=== PATIENT | female | born 1950 | race Caucasian/White ===

== ENCOUNTER 2017-02-08 07:22 | Day surgery (SDC) | payer MEDICARE ==
--- NOTE | 2017-01-30 08:32 | HP ---
CC: Dr. Guz[facility], [facility]; [facility] PREOPERATIVE HISTORY AND PHYSICAL: DATE OF ADMISSION: This patient is scheduled for same day surgery admission by Dr. Guzman on Saturday , 02/08/17. DATE OF PREOPERATIVE HISTORY AND PHYSICAL EXAMINATION: 01/29/17. ATTENDING SURGEON: Dr. Marcia Guzman (dictated by Breanne Cat NP). CHIEF COMPLAINT: Right breast cancer. HISTORY OF PRESENT ILLNESS: The patient is a 66-year-old female referred to Dr. Guzman from [facility] for evaluation of a new right breast lump. The patient stated that she found a lump tara roximately 2 weeks ago and it is not associated with pain. Mammogram was performed, 01/18/17; fine needle aspiration done at [facility] by Dr. Luo revealed well-differentiated ducta l carcinoma in the mass, lateral aspect of the right breast and atypical cells suspicious for ductal adenocarcinoma in the mass, medial aspect of the right breast. The patient has a family history of breast cancer in 2 maternal aunts who had it diagnosed in their 80s; she also has a family history of ovarian cancer. She has never had radiation to the chest and has not had previous breast biopsies . Menarche was at age 15, first delivery at age 31 and menopause at age 55. She is not currently on any hormone therapy, but did take control pills in the past. Dr. Guzman examined the patient and discussed the findings with her and has recommended right breast lumpectomy with sentinel lymph node biopsy as a same day surgery procedure; Dr. Guzman discussed the nature of the surgical procedu re, the rationale for the procedure, the relevant risks and benefits, and today, I discussed the exp ected postoperative care and recovery. The patient has had a chance to ask questions and stated laurence t she understands the information and is satisfied with the answers given to her questions. She giselle l sign surgical consent on the day of surgery. She has also been referred for consultations with Dr Gio Tyler and Dr. Vidal Clark as well as with the Oncology nurse navigator. PAST MEDICAL HISTORY: Generally healthy. No acute or chronic conditions. PAST SURGICAL HISTORY: Tonsillectomy in 1959. OB HISTORY: 4, para 3, miscarriage 1. Menopause at age 55. MEDICATIONS: No active medications. ALLERGIES: No known drug allergies. FAMILY HISTORY: Positive for breast cancer in 2 maternal aunts and another family member with a his tory of ovarian cancer and colon cancer. No known anesthesia reactions, bleeding tendencies, or nba tting disorders. SOCIAL HISTORY: She is and is a banker. She has never been a smoker. She drinks 1 glass o f wine daily and walks for exercise. She denies the use of other substances. REVIEW OF SYSTEMS: Constitutional: No recent complaints. Cardiovascular: No chest pain, palpitat ions, pressure, or history of cardiac conditions. Respiratory: No shortness of breath. No history of smoking. Gastrointestinal: No conditions or complaints. Genitourinary: No conditions or compl aints. Musculoskeletal: No conditions or complaints. She denies any history of deep vein thrombos is or pulmonary embolism. She denies any bleeding tendencies and has never received a blood transfu tata. She denies any previous anesthesia complications. Neurologic: No complaints or conditions. PHYSICAL EXAMINATION GENERAL SURVEY: The patient is a 66-year-old female, well developed, well nourished, in no acute di stress. VITAL SIGNS: Height 65 inches, weight 145 pounds, body mass index 23.6, blood pressure 116/82, puls e 86 and regular, respiratory rate 16, temperature 97. HEENT: Benign. NECK: Supple. No cervical lymphadenopathy. No thyromegaly. BREASTS: Performed with the patient in supine position and sitting position. Breasts are symmetrica l. Skin is intact bilaterally. No masses noted in the left breast; in the upper outer quadrant of the right breast is an irregular, firm ill- defined mass that is distinct from surrounding tissues. Medial to the larger lesion is an area that is smaller, but also firm. No palpable supraclavicular lymphadenopathy. No palpable axillary lymphadenopathy. HEART: Regular rate and rhythm. No murmurs or rubs. ABDOMEN: Active bowel sounds. Soft, nontender, nondistended. No obvious masses, organomegaly, or evidence of umbilical hernia. EXTREMITIES: Warm without edema or skin ulceration. PELVIC AND RECTAL: Exams deferred. NEUROLOGIC: Alert and oriented x3. Steady gait. SKIN: Warm, dry, intact. IMPRESSION: Right breast cancer. PLAN: Same day surgery admission to Dr. Guzman's service on 02/08/17, for right breast lump ectomy and sentinel lymph node biopsy. PLACIDO CAT, EMPLOYEE BENEFITS ATTORNEY [id number]/[facility] #: [id number]
[~2017-02-08 07:22] MED LIST: Buffered Lidocaine 0.9% SYRIN* 5 ML/SYR SYRINGE INTRADERM ONE; Famotidine IV* 10 MG/ML 2 ML (20 mg) IV ONE; Famotidine IV* 10 MG/ML 2 ML (20 mg) ONE; Lidocaine 2.5%/Prilocain 2.5%* 5 GM TUBE ONE; ceFAZolin 2 GM PREMIX(*) 2 GM/50 ML BAG IVPB ONE
[2017-02-08] MEDS ORDERED: Midazolam* 1 MG/ML 5 ML VIAL (5 MG) ONE (09:11)
[2017-02-08] MEDS ORDERED: fentaNYL* 50 MCG/ML 2 ML VIAL (100 MCG VIAL) ONE (09:11)
[2017-02-08] MEDS ORDERED: Famotidine IV* 10 MG/ML 2 ML (20 mg) ONE (09:11)
--- NOTE | 2017-02-08 09:22 | RAD ---
INDICATION: Right breast carcinoma. Comparison: Correlation is made with prior mammograms and a right breast ultrasound from January 18, 2017. Technique: The benefits and risks of the procedure were explained to the patient. The patient consented to the exam. A timeout was performed before beginning the procedure. 0.34 mCi of technetium 99m filtered sulfur colloid were injected in a wolfgang-areolar location. Four intradermal injections were made. The patient tolerated the procedure well without incident. Multiple images of the chest and right axilla were obtained in the frontal, oblique and lateral projections. FINDINGS: There was a single sentinel node present in the right axilla. This was marked and localized on the patient's skin. IMPRESSION: THERE IS A SINGLE SENTINEL NODE PRESENT IN THE RIGHT AXILLARY REGION WHICH WAS LOCALIZED ON THE PATIENT'S SKIN.
[2017-02-08] MEDS ORDERED: Propofol* 10 MG/ML 20 ML BTL IV PUSH ONE (09:32)
[2017-02-08] MEDS ORDERED: Ketorolac INJ* 30 MG/ML 1 ML VIAL ONE (09:32)
[2017-02-08] MEDS ORDERED: Dexamethasone IV* 4 MG/ML 1 ML (4 MG) ONE (09:32)
[2017-02-08] MEDS ORDERED: Lidocaine 2% PF * 5 ML VIAL ONE (09:32)
[2017-02-08] MEDS ORDERED: Ondansetron INJ* 2 MG/ML VIAL ONE (09:32)
[2017-02-08] MEDS ORDERED: Methylene Blue 0.5 %* 50 MG/10 ML AMP IV ONE (10:08)
[2017-02-08] MEDS ORDERED: Lidocaine 1% INJ* 10 MG/ML 30 ML SDV ONE (10:08)
[2017-02-08] MEDS ORDERED: Bupivacaine 0.5% W/EPI SDV* 10 ML VIAL INJ ONE (10:08)
[2017-02-08] MEDS ORDERED: Bupivacaine 0.5% SDV PF* 30 ML VIAL ONE (10:20)
[2017-02-08] MEDS ORDERED: DiMENhydriNATE IV* 50 MG/ML VIAL ONE ×2 (11:59→13:55)
[2017-02-08] MEDS ORDERED: DiMENhydriNATE IV* 50 MG/ML VIAL IV PUSH PRN (12:04)
[2017-02-08] MEDS ORDERED: Acetaminophen IV 1GM/100ML * 10 MG/ML VIAL IVPB ONE (12:04)
[2017-02-08] MEDS ORDERED: oxyCODONE TAB* 5 MG TAB PO PRN (12:04)
[2017-02-08] MEDS ORDERED: HYDROmorphone* 1 MG/ML 1 ML SYR IV PRN (12:04)
[2017-02-08] MEDS ORDERED: HYDROcodone/ACETAMIN 5-325 MG* 1 TAB PO PRN ×2 (13:43)
[2017-02-08] MEDS ORDERED: Acetaminophen IV 1GM/100ML * 100 ML ONE (13:49)
[2017-02-08 14:30] VITALS: BP 125/78
--- NOTE | 2017-02-08 14:38 | RAD ---
HISTORY: Power port insertion COMPARISONS: None VIEWS: 1: frontal view of the chest FINDINGS: CARDIOMEDIASTINAL SILHOUETTE: The cardiomediastinal silhouette is normal. TYRELL: The tyrell are normal. PLEURA: The costophrenic angles are sharp. No pleural abnormalities are noted. LUNG PARENCHYMA: The lungs are clear. ABDOMEN: The upper abdomen is clear. There is no subphrenic gas. BONES AND SOFT TISSUES: No bone or soft tissue abnormalities are noted. OTHER: A left-sided chest port is noted from a subclavian approach with the tip overlying the superior vena cava. Surgical clips are noted in the right axilla IMPRESSION: LINES AND TUBES ABOVE.
--- NOTE | 2017-02-08 14:48 | RAD ---
INDICATION: chest port placement COMPARISONS: None relevant TECHNIQUE: Fluoroscopy was provided for a vascular access procedure. Total fluoroscopy time is: 32.5 seconds FINDINGS: A single spot image demonstrates a left-sided chest port with the tip overlying the cavoatrial junction. IMPRESSION: FLUOROSCOPY WAS PROVIDED FOR A VASCULAR ACCESS PROCEDURE CPT II Codes: 6045F
--- NOTE | 2017-02-09 02:56 | OP ---
CC: [facility]; Dr. Lillie Tyler; [facility] OPERATIVE REPORT: DATE OF OPERATION: 02/08/17 DATE OF : 52 SURGEON: Marcia Guzman MD IC DESIGN MANAGER: LUZ ELENA Rodríguez student. PRE-OP DIAGNOSIS: Right breast cancer. POST-OP DIAGNOSIS: Right breast cancer. PROCEDURE: Right breast lumpectomy and sentinel lymph node biopsy and placement of a PowerPort. INDICATION: Ms. Sol is a 66-year-old woman recently diagnosed with breast cancer, who was prepared for surgery. DESCRIPTION OF PROCEDURE: She was brought to the operating room, placed on the OR table in a supine position and given general anesthesia. The chest was prepped and draped in the usual sterile fashion along with the right axilla. Attention was turned first to the breast. Here after infiltrating with local anesthetic, a curvilinear incision was made over the palpable mass. Subcutaneous tissue was divided with electrocautery to excise the mass. The specimen was marked in the usual fashion and then handed off. In the process of doing this, it was recognized that there were 2 nodules, one was more medial than the other. The more medial nodule was close to the edge of the tissue removed, so additional tissue was taken from posterior to the medial nodule. This was labeled tissue posterior to previous specimen and had the usual markings also. Once these specimens were out, hemostasis was assured with electrocautery. The wound was irrigated with saline. Clips were placed in the cavity to luz maria its confines and then additional local was instilled into the cavity. Closure was accomplished with 3-0 Polysorb in a subcutaneous layer and the skin was closed with 4-0 Surgipro in a subcuticular fashion. Attention was then turned to the axilla where a curvilinear incision was made after infiltrating with local anesthetic. Then using the navigator, an apparent sentinel node was identified. It was excised and noted to actually have 0 counts. In situ, it appeared to have counts in the order of 600, so a search was made for additional sentinel node material and an additional node was identified that had counts in the order of 15,000. This was excised and similarly had ex vivo counts of around 15,000 and then the axillary bed counts were around 0. The wound was irrigated with saline and hemostasis was assured with clips, then closure was accomplished with 3-0 Polysorb in a subcutaneous layer and the skin was closed with 4-0 Surgipro in the subcuticular fashion. Steri-Strips were applied to both of these incisions and they were covered with a towel. Attention was turned to the PowerPort placement. This was done on the left side using a Seldinger technique after infiltrating with local anesthetic, a wire was placed in the left subclavian vein with visualization by fluoroscopy. Once the wire was in position, the port pocket was made. This was done by infiltrating the skin of the chest wall with a local anesthetic making an incision and outlining a flap inferiorly that would be of a size to accommodate the port. Once the pocket was of appropriate size, the catheter was tunneled from the pocket to the wire exit site, which was noted to be close together and then a dilator and introducer were placed over the wire into the subclavian vein under fluoroscopic visualization. The dilator and wire were removed and the catheter was advanced through the introducer into the superior vena cava again under fluoroscopic visualization. The introducer was then peeled away. Catheter was attached to the port after it was trimmed to an appropriate length and inserted into the pocket. It was anchored to the chest wall using 2-0 Surgipro stitches, then its function was checked and it was found to be functioning very well. Closure was accomplished with 3-0 Polysorb in a subcutaneous layer and skin was closed with 4-0 Surgipro in subcuticular fashion. Steri-Strips were applied here and dry sterile dressings were then applied to all incisions. All sponge and instrument counts were correct. The patient tolerated the procedure well and was transferred to recovery area in stable condition. [id number]/[facility] #: [id number] [facility] HOS[facility]ITALReid
== END 2017-02-08 15:15 | disposition home or self-care (01) ==
LOC: OR 07:22
PROVIDERS: ATTEND Surgery
DX: C50.911 Malignant neoplasm of unspecified site of right female breast (principal); C77.3 Secondary and unspecified malignant neoplasm of axilla and upper limb lymph nodes; N60.11 Diffuse cystic mastopathy of right breast
CPT/HCPCS: 71010; 76000; 78195; 88307; 88341; 88342; 88360; A9270-GY; A9541; C1788; J0690; J1100; J1240; J1642; J1885; J2001; J2250; J2405; J2704; J3010